=== PATIENT | female | born 1960 | race Caucasian/White ===

== ENCOUNTER 2020-05-30 07:08 | Day surgery (SDC) | payer MEDICAID ==
[2020-05-24 12:09] LABS: BASOPHILS # (AUTO) 0.1 X10'3 (0-0.2); BASOPHILS % (AUTO) 0.9 % (0-1); EOSINOPHILS # (AUTO) 0.2 X10'3 (0-0.9); EOSINOPHILS % (AUTO) 2.5 % (0-6); LYMPHOCYTES # (AUTO) 2.3 X10'3 (1.1-4.8); LYMPHOCYTES % (AUTO) 33.6 % (21-51); MEAN CORPUSCULAR HEMOGLOBIN 30.2 PG (27.0-31.0); MEAN CORPUSCULAR HGB CONC 34.1 g/dL (33.0-36.5); MEAN CORPUSCULAR VOLUME 88.6 FL (78-98); MONOCYTES # (AUTO) 0.6 X10'3 (0-0.9); MONOCYTES % (AUTO) 8.6 % (2-12); NEUTROPHILS # (AUTO) 3.7 X10'3 (1.8-7.7); NEUTROPHILS % (AUTO) 54.4 % (42-75); PRE OP HEMATOCRIT 41.5 % (35.0-45.0); PRE OP HEMOGLOBIN 14.2 g/dL (12.0-16.0); PRE OP PLATELET COUNT 245 X10'3 (140-440); RED BLOOD COUNT 4.68 X10'6 (4.20-5.60); RED CELL DISTRIBUTION WIDTH 13.7 % (11.5-14.5)
[2020-05-24 12:27] LABS: ALKALINE PHOSPHATASE 73 IU/L (46-116); BLOOD UREA NITROGEN 15 MG/DL (7-18); CHLORIDE 103 MMOL/L (99-107); CREATININE 1.15 MG/DL (0.40-0.90); PRE OP ALT 24 U/L (30-65); PRE OP ANION GAP 10 (8-16); PRE OP AST 12 U/L (10-37); PRE OP BILIRUB, TOTAL 0.3 MG/DL (0.0-1.0); PRE OP GLUCOSE 102 MG/DL (70-104); PRE OP POTASSIUM 4.7 MMOL/L (3.4-5.1); PRE OP SODIUM 137 MMOL/L (135-145); TOTAL CARBON DIOXIDE 23.8 MMOL/L (24-32); TOTAL PROTEIN 8.2 G/DL (6.4-8.2); eGFR 48 ML/MIN
[~2020-05-30] VITALS: Ht 160 cm; Wt 114.0 kg
[~2020-05-30 07:08] MED LIST: ACET-1008 PO; ALBU6.7H3 IH; ASPI-611 PO; BUPIVAcaine/PF 2.5mg/ml (0.25%) 10ml vial ONE; COR3.125T PO; DOCUMENT DATE & TIME OF BETA-BLOCKER PO ONE; FURO-150 PO; IBUP1TAB11 PO; LOSA50TA3 PO; POTA8TAB3 PO; SERT100T PO; ceFAZolin 2gm in dextrose, iso 50 ML IV ONE; famotidine 20mg tablet PO ONE; ringers solution, lacted 1,000 ML IV SCH
[2020-05-30 07:30] VITALS: BP 119/76
[2020-05-30] MEDS ORDERED: LIDOcaine 0.5% (5mg/ml) 50ml vial ONE (09:02)
[2020-05-30] MEDS ORDERED: midazolam 2 mg/2 ml injection ONE (09:17)
[2020-05-30] MEDS ORDERED: fentaNYL/PF 50MCG/1 ML 2ML syringe ONE (09:17)
[2020-05-30] MEDS ORDERED: propofol inj 20 ML IV ONE (09:26)
[2020-05-30 09:42] VITALS: BP 142/92
[2020-05-30] MEDS ORDERED: ringers solution, lacted 1,000 ML IV SCH (09:45)
[2020-05-30] MEDS ORDERED: hydrALAZINE 20mg/ml inj. IV PRN (09:45)
[2020-05-30] MEDS ORDERED: acetaminophen 1,000mg/100ml IV 100 ML IV PRN (09:45)
[2020-05-30] MEDS ORDERED: labetalol 20mg/4ml (5mg/ml) syringe IV PRN (09:45)
[2020-05-30] MEDS ORDERED: fentaNYL/PF 50MCG/1 ML 2ML syringe IV PRN ×2 (09:45)
[2020-05-30] MEDS ORDERED: meperidine/PF 25mg/ml syringe IV PRN (09:45)
[2020-05-30] MEDS ORDERED: proCHLORperazine 10 MG/2 ml inj IV PRN (09:45)
[2020-05-30] MEDS ORDERED: ondansetron/PF 4mg/2ml inj IV PRN (09:45)
[2020-05-30 09:52] VITALS: BP 147/92
[2020-05-30 10:02] VITALS: BP 135/86
[2020-05-30 10:12] VITALS: BP 147/90
[2020-05-30 10:22] VITALS: BP 128/93
--- NOTE | 2020-05-30 10:30 | NUR ---
ARRIVED ON PAS, ROOM 245b, FROM PACU. PT AWAKE. VS STABLE ON ARRIVAL [phone] PT JUST WAITING FOR RIDE
--- NOTE | 2020-05-30 10:32 | NUR ---
Report called to receiving nurse. Transferred via [facility] . Special Issues communicated to receiving nurse. AWAKE AND ORIENTED. VITALS STABLE. DRESSING DI. NAE PAIN. TO PAS RM 245B AT THIS TIME TO AWAIT RIDE HOME.
--- NOTE | 2020-05-30 11:05 | NUR ---
PT UP. STEADY ON HER FEET. VOIDED QS IN BR. DRESSED WITHOUT ASSISTANCE. [employer]. TO CAR VIA W/C ASSISTED BY NURSE WITHOUT INCIDENT
== END 2020-05-30 11:05 | disposition home or self-care (01) ==
LOC: PAS 07:08
PROVIDERS: ATTEND Orthopaedic Surgery Hand Surgery
DX: M65.331 Trigger finger, right middle finger (principal); M65.341 Trigger finger, right ring finger; Z20.828 Contact with and (suspected) exposure to other viral communicable diseases; Z79.899 Other long term (current) drug therapy; Z79.82 Long term (current) use of aspirin; E11.40 Type 2 diabetes mellitus with diabetic neuropathy, unspecified; M17.0 Bilateral primary osteoarthritis of knee; F17.210 Nicotine dependence, cigarettes, uncomplicated; J44.9 Chronic obstructive pulmonary disease, unspecified; G47.33 Obstructive sleep apnea (adult) (pediatric); I10 Essential (primary) hypertension; M19.90 Unspecified osteoarthritis, unspecified site; F32.9 Major depressive disorder, single episode, unspecified; Z85.41 Personal history of malignant neoplasm of cervix uteri; Z88.8 Allergy status to other drugs, medicaments and biological substances; Z91.013 Allergy to seafood; Z90.710 Acquired absence of both cervix and uterus; Z98.890 Other specified postprocedural states; Z82.49 Family history of ischemic heart disease and other diseases of the circulatory system
CPT/HCPCS: 26055; 36415; 80053; 82948; 85025; 87635; 93005; J2001; J2250; J2704; J3010; J3490; J7120; A4215

== ENCOUNTER 2023-11-18 00:25 | Emergency (ER) | payer MEDICAID ==
[~2023-11-18] VITALS: Ht 160 cm; Wt 109.1 kg
[~2023-11-18 00:25] MED LIST changes: -BUPIVAcaine/PF 2.5mg/ml (0.25%) 10ml vial ONE; -DOCUMENT DATE & TIME OF BETA-BLOCKER PO ONE; +LOSA-416 PO; -LOSA50TA3 PO; -POTA8TAB3 PO; +POTA8TAB69 PO; -ceFAZolin 2gm in dextrose, iso 50 ML IV ONE; -famotidine 20mg tablet PO ONE; -ringers solution, lacted 1,000 ML IV SCH
[2023-11-18] MEDS: HYDROcodone/acetaminophen 10/325mg tab PO ONE (02:06)
[2023-11-18] MEDS ORDERED: CYCL-394 PO (03:33)
[2023-11-18] MEDS ORDERED: LIDO1ADH78 TOP (03:33)
[2023-11-18 04:18] VITALS: BP 133/76; PULSE 93; RESP 16; TEMP 97.3; O2SAT 98
== END 2023-11-18 04:21 | disposition home or self-care (01) ==
LOC: ER 00:25
DX: S70.02XA Contusion of left hip, initial encounter (principal); Z88.8 Allergy status to other drugs, medicaments and biological substances; W18.30XA Fall on same level, unspecified, initial encounter; Y93.89 Activity, other specified; Y92.89 Other specified places as the place of occurrence of the external cause; Y99.8 Other external cause status
CPT/HCPCS: 72100; 73502; 99285